=== PATIENT | male | born 1980 | race Caucasian/White ===

== ENCOUNTER 2016-12-15 17:58 | Emergency (ER) | payer OTHER ==
[~2016-12-15] VITALS: Ht 162.6 cm; Wt 68.0 kg
[2016-12-15 18:07] VITALS: BP 133/52
--- NOTE | 2016-12-15 19:35 | NUR ---
PT IS 36/M BIB SELF TO ED WITH C/O FEVER, COUGH, HEADACHE, VOMITING X 4 DAYS PT STATES NO MED HX. DENIES N/V/D; SKIN IS PINK/WARM/DRY; AAOX4 WITH EVEN AND STEADY GAIT; LUNGS CLEAR BL; HR EVEN AND REGULAR; PT DENIES ANY CP, SOB AT THIS TIME; PATIENT STATES PAIN OF 9/10 AT THIS TIME; VSS; PATIENT POSITIONED FOR COMFORT; HOB ELEVATED; BEDRAILS UP X2; BED DOWN. ER MD MADE AWARE OF PT STATUS.
[2016-12-15 20:15] VITALS: BP 122/43
--- NOTE | 2016-12-15 20:16 | NUR ---
Patient discharged with v/s stable. Written and verbal after care instructions given and explained. Patient alert, oriented and verbalized understanding of instructions. Ambulatory with steady gait. All questions addressed prior to discharge. ID band removed. Patient advised to follow up with PMD. Rx of DIMETAPP, MOTRIN, AZITHROMYCIN given. Patient educated on indication of medication including possible reaction and side effects. Opportunity to ask questions provided and answered.
== END 2016-12-15 20:16 | disposition home or self-care (01) ==
LOC: MED 17:58
DX: R50.9 Fever, unspecified (principal); R05 Cough; R09.81 Nasal congestion; F12.90 Cannabis use, unspecified, uncomplicated; F10.99 Alcohol use, unspecified with unspecified alcohol-induced disorder
CPT/HCPCS: 71020; 99284

== ENCOUNTER 2017-09-17 19:34 | Emergency (ER) | payer OTHER ==
[~2017-09-17] VITALS: Ht 162.6 cm; Wt 67.6 kg
[2017-09-17 19:40] VITALS: BP 134/99
--- NOTE | 2017-09-17 20:23 | NUR ---
TO ER OF B
--- NOTE | 2017-09-17 20:32 | NUR ---
37Y M BIB FAMILY C/O MID EPIGASTRIC PAIN X 5 DAYS. PT STATES PAIN IS CONSTANT, SHARP 10/10 PAIN. PT STATES HE HAS NOT HAD A GOOD BM IN 1 WEEK. PT ALSO C/O NAUSEA. PT AAOX4. BREATHING IS UNLABORED AND EVEN.
[2017-09-17] MEDS ORDERED: DICYCLOMINE HCL LIQUID 10 MG/5 ML UDC PO ONE (21:05)
[2017-09-17] MEDS ORDERED: LIDOCAINE VISCOUS 2% 20 ML UDC PO ONE (21:05)
[2017-09-17] MEDS ORDERED: ALUMINUM HYD/MAG/SIMETHICONE 30 ML UDC PO ONE (21:05)
[2017-09-17] MEDS ORDERED: traMADol 50 MG TAB PO ONE (21:30)
[2017-09-17] MEDS ORDERED: PANTOPRAZOLE 40 MG TABEC PO ONE (21:30)
--- NOTE | 2017-09-17 21:45 | NUR ---
Patient being evaluated by physician at bedside.
[2017-09-17 22:01] VITALS: BP 122/84
--- NOTE | 2017-09-17 22:01 | NUR ---
Patient discharged with v/s stable. Written and verbal after care instructions given and explained. Patient alert, oriented and verbalized understanding of instructions. Ambulatory with steady gait. All questions addressed prior to discharge. ID band removed. Patient advised to follow up with PMD. Rx of PRILOSEC 40MG given. Patient educated on indication of medication including possible reaction and side effects. Opportunity to ask questions provided and answered.
== END 2017-09-17 22:01 | disposition home or self-care (01) ==
LOC: MED 19:34
DX: K21.9 Gastro-esophageal reflux disease without esophagitis (principal)
CPT/HCPCS: 99284